=== PATIENT | male | born 1950 | race Caucasian/White ===

== ENCOUNTER 2017-03-28 14:12 | Outpatient (CLI) | payer OTHER ==
[2017-03-28 18:19] LABS: ALBUMIN/GLOBULIN RATIO 1.4 (1.0-2.2); BILIRUBIN,TOTAL 1.2 mg/dL (0.2-1.0); BUN - BLOOD UREA NITROGEN 13 mg/dL (6-20); CALCIUM 9.2 mg/dL (8.5-10.3); CARBON DIOXIDE - CO2 30 mmol/L (21-32); CHLORIDE 105 mmol/L (101-111); CHOL/HDL RATIO 4.5 (<5.0); CHOLESTEROL 192 mg/dL; CREATININE 0.8 mg/dL (0.6-1.2); GFR - MDRD 97 (>89); GLUCOSE 104 mg/dL (70-100); HDL CHOLESTEROL 43 mg/dL; LDL/HDL RATIO 2.5 (<3.6); POTASSIUM 4.5 mmol/L (3.5-5.0); SODIUM 141 mmol/L (135-145); TOTAL PROTEIN 7.1 g/dL (6.7-8.2); TRIGLYCERIDES 211 mg/dL; VLDL CHOLESTEROL 42 mg/dL
== END 2017-03-28 14:13 | disposition home or self-care (01) ==
LOC: LAB.F 14:12
PROVIDERS: ATTEND Internal Medicine
DX: E78.00 Pure hypercholesterolemia, unspecified (principal)
CPT/HCPCS: 36415; 80053; 80061

== ENCOUNTER 2017-04-26 08:19 | Outpatient (CLI) | payer OTHER ==
[2017-04-26 11:31] LABS: CREATININE 0.7 mg/dL (0.6-1.2)
== END 2017-04-26 08:20 | disposition home or self-care (01) ==
LOC: LAB.F 08:19
PROVIDERS: ATTEND Internal Medicine
DX: I10 Essential (primary) hypertension (principal)
CPT/HCPCS: 36415; 80048

== ENCOUNTER 2018-03-10 14:57 | Observation (INO) | payer MEDICARE, OTHER ==
--- NOTE | 2018-03-10 15:13 | ED Physician Documentation ---
PD HPI CHEST PAIN - Stated complaint Stated Complaint: CHEST PX/LT SHOULDER/NECK PX/LIGHT HEADED - Chief complaint Chief Complaint: Cardiac - History obtained from History obtained from: Patient, Family - History of Present Illness Timing - onset: Today (He was awoken at 130 this morning by sharp painful left- sided chest pain radiating to the left arm with mild dizziness but no shortness of breath, nausea, or sweats. He did note a few days ago that he had some pain behind left knee and he returned from [place] biplane a few weeks ago. He has a history of hypertension but no known heart disease. He took aspirin prior to arrival. Pain is better now but not completely gone.) Review of Systems Ten Systems: 10 systems reviewed and negative Constitutional: denies: Fever, Chills Throat: denies: Dental pain / toothache, Sore throat Cardiac: denies: Palpitations Respiratory: denies: Dyspnea, Cough PD PAST MEDICAL HISTORY - Past Medical History Cardiovascular: Hypertension - Past Surgical History Past Surgical History: Yes General: Gastric surgery (Lap band) Ortho: Knee replacement - Present Medications Home Medications: Ambulatory Orders Medication Instructions Recorded Confirmed Lisinopril/Hydrochlorothiazide 10 DAILY 11/28/14 12/01/14 [Lisinopril-Hctz 10-12.5 mg Tab] Aspirin [Aspir 81] 325 DAILY 12/01/14 12/01/14 - Allergies Allergies/Adverse Reactions: Allergies Allergy/AdvReac Type Severity Reaction Status Date / Time No Known Drug Allergies Allergy Verified 03/10/18 15:08 - Social History Does the pt smoke?: No Smoking Status: Never smoker Does the pt drink ETOH?: No Does the pt have substance abuse?: No - Family History Family history: reports: Non contributory - Immunizations Immunizations are current?: Yes PD ED PE NORMAL - Vitals Vital signs reviewed: Yes - General General: Alert and oriented X 3, No acute distress - HEENT HEENT: PERRL, EOMI - Neck Neck: Supple, no meningeal sign, No bony TTP - Cardiac Cardiac: RRR, No murmur - Respiratory Respiratory: No respiratory distress, Clear bilaterally - Abdomen Abdomen: Normal bowel sounds, Soft, Non tender - Back Back: No CVA TTP, No spinal TTP - Derm Derm: Normal color, Warm and dry - Extremities Extremities: No calf tenderness / cord, Other (Trace pitting pedal edema which is symmetric without calf tenderness.) - Neuro Neuro: Alert and oriented X 3, Normal speech - Psych Psych: Normal mood, Normal affect Results - Vitals Vitals: Vital Signs - 24 hr 03/10/18 03/10/18 03/10/18 15:05 15:59 16:04 Temperature 36.8 C Heart Rate 75 76 90 Respiratory 20 22 17 Rate Blood Pressure 162/87 H 150/85 H 144/85 H O2 Saturation 99 Oxygen O2 Source Room air - EKG (time done) 1505 Rate: Rate (enter#) (82) Rhythm: NSR (with pacs) [place]: LAD Intervals: Wide QRS Ischemia: Normal ST segments Computer interpretation: Agree with computer - Labs Labs: Laboratory Tests 03/10/18 03/10/18 03/10/18 15:15 15:15 15:15 WBC 8.9 RBC 4.65 L Hgb 14.0 Hct 40.8 L MCV 87.8 MCH 30.2 MCHC 34.4 RDW 14.0 Plt Count 356 MPV 7.3 L Neut # (Auto) Not Reportable Lymph # (Auto) Not Reportable [place] # (Auto) Not Reportable Eos # (Auto) Not Reportable Baso # (Auto) Not Reportable Absolute Nucleated RBC Not Reportable Total Counted 100 Band Neuts % (Manual) 10 Abnorm Lymph % (Manual) 0 Nucleated RBC % Not Reportable Neutrophils # (Manual) 6.6 Lymphocytes # (Manual) 1.6 Monocytes # (Manual) 0.5 Eosinophils # (Manual) 0.2 Basophils # (Manual) 0.0 Differential Comment MANUAL DIFFERENTIAL Manual Slide Review Indicated WBC Morphology NORMAL APPEARANCE Platelet Estimate NORMAL (130-450,000) Platelet Morphology NORMAL APPEARANCE RBC Morph Micro Appear NORMAL APPEARANCE Sodium 138 Potassium 3.9 Chloride 104 Carbon Dioxide 28 Anion Gap 6.0 BUN 16 Creatinine 0.7 Estimated GFR (MDRD) 113 Glucose 113 H Calcium 8.6 Total Bilirubin 1.0 AST 26 ALT 31 Alkaline Phosphatase 45 Troponin I < 0.04 Total Protein 6.8 Albumin 3.5 Globulin 3.3 Albumin/Globulin Ratio 1.1 Lipase 27 - Rads (name of study) CTA Chest Radiology: EMP read contemporaneously (no pE< cholelithiasis) PD MEDICAL DECISION MAKING - ED course ED course: This is a morbidly obese 67-year-old gentleman with waxing and waning chest pain since this morning and also risk factors for PE including recent intercontinental travel and some leg symptoms, however his CTA of the chest and troponin and EKG are all without evidence of acute ischemia or PE, however given the persistent high risk given his size and comorbidities and age I spoke with Dr. Cantu for obs at 5:30 PM. - Sepsis Event Vital Signs: Vital Signs - 24 hr 03/10/18 03/10/18 03/10/18 15:05 15:59 16:04 Temperature 36.8 C Heart Rate 75 76 90 Respiratory 20 22 17 Rate Blood Pressure 162/87 H 150/85 H 144/85 H O2 Saturation 99 Oxygen O2 Source Room air Departure - Departure Disposition: ED Place in Observation Clinical Impression: Chest pain Qualifiers: Chest pain type: unspecified Qualified Code(s): R07.9 - Chest pain, unspecified Condition: Good
[2018-03-10 15:21] LABS: EOSINOPHILS % (AUTO) 2.7 %; MEAN CORPUSCULAR HEMOGLOBIN 30.2 pg (27.0-31.0); MEAN CORPUSCULAR HGB CONC 34.4 g/dL (32.0-36.0); MEAN CORPUSCULAR VOLUME 87.8 fL (80.0-94.0); MEAN PLATELET VOLUME 7.3 fL (7.4-11.4); MONOCYTES % (AUTO) 8.8 %; NEUTROPHILS % (AUTO) 70.5 %; PLT - PLATELET COUNT 356 10^3/uL (130-450); RED BLOOD COUNT 4.65 10^6/uL (4.70-6.10); WHITE BLOOD COUNT 8.9 x10^3/uL (4.8-10.8)
[2018-03-10 15:25] LABS: ABNORMAL LYMPHS % (MANUAL) 0 %
[2018-03-10] MEDS ORDERED: IOPAMIDOL-300 100 ML VIAL ONE (15:30)
[2018-03-10 15:36] LABS: BAND NEUTROPHILS % (MANUAL) 10 %; DIFFERENTIAL COMMENT MANUAL DIFFERENTIAL; EOSINOPHILS # (MANUAL) 0.2 10^3/uL (0-0.7); LYMPHOCYTES # (MANUAL) 1.6 10^3/uL (1.5-3.5); LYMPHOCYTES % (MANUAL) 18 %; MONOCYTES # (MANUAL) 0.5 10^3/uL (0.0-1.0); NEUTROPHILS # (MANUAL) 6.6 10^3/uL (1.5-6.6); NEUTROPHILS % (MANUAL) 64 %; PLATELET ESTIMATE, MANUAL NORMAL (130-450,000) (NORMAL); PLATELET MORPHOLOGY NORMAL APPEARANCE (NORMAL); RBC MORPHOLOGY (MULTIPLE) NORMAL APPEARANCE (NORMAL)
[2018-03-10 15:37] LABS: ALBUMIN 3.5 g/dL (3.2-5.5); ALBUMIN/GLOBULIN RATIO 1.1 (1.0-2.2); CALCIUM 8.6 mg/dL (8.5-10.3); CREATININE 0.7 mg/dL (0.6-1.2); TOTAL PROTEIN 6.8 g/dL (6.7-8.2)
[2018-03-10] MEDS ORDERED: MORPHINE 2 MG/ML SYRINGE IVP STA (15:53)
[2018-03-10] MEDS ORDERED: NITROGLYCERIN SL 0.4 MG TABLET SL STA (15:53)
[2018-03-10] MEDS ORDERED: IOPAMIDOL-300 100 ML VIAL IVP ONE (16:53)
[2018-03-10] MEDS ORDERED: ACETAMINOPHEN 325 MG TABLET PO STA (17:01)
--- NOTE | 2018-03-10 17:15 | CT Report ---
Procedure Date: 03/10/2018 Accession Number: [id number] / [id number] Procedure: CT - Chest Angio (PE) CPT Code: FULL RESULT: EXAM: CT ANGIOGRAM CHEST EXAM DATE: 03/10/2018 04:51 PM. CLINICAL HISTORY: Chest pain. COMPARISON: 08/06/2007. TECHNIQUE: Routine helical imaging was performed through the chest in the pulmonary arterial phase. IV Contrast: 100 mL Isovue-300. Reconstructions: Coronal 3-D MIP reconstructions.Sagittal and coronal. In accordance with CT protocol optimization, one or more of the following dose reduction techniques were utilized for this exam: automated exposure control, adjustment of mA and/or KV based on patient size, or use of iterative reconstructive technique. FINDINGS: Pulmonary Arteries: Diagnostic quality: Adequate through the segmental arteries. No pulmonary embolus is seen. Lungs/Pleura: Mild subpleural scarring in the inferior lingula. Mild linear atelectasis in the bilateral posterior lower lobe bases. No focal infiltrate, pleural effusion, or pneumothorax. Mediastinum: Heart size is normal. No pericardial effusion. Mild atherosclerotic calcifications within the aortic arch. No aortic aneurysm or dissection. No adenopathy. Upper Abdomen: Laparoscopic adjustable gastric band. Cholelithiasis without gallbladder distention or pericholecystic fat stranding to suggest acute cholecystitis. Bones: Thoracic spine DISH. No acute bony abnormality. Other: None. IMPRESSION: 1. No pulmonary embolus or other acute process identified to explain chest pain. 2. Cholelithiasis without CT evidence for acute cholecystitis. RADIA
[2018-03-10] MEDS ORDERED: SODIUM CHLORIDE FLUSH 0.9% 10 ML SYRINGE IVP PRN (17:33)
[2018-03-10] MEDS ORDERED: MORPHINE 2 MG/ML SYRINGE IVP PRN (17:33)
[2018-03-10] MEDS ORDERED: TEMAZEPAM 15 MG CAPSULE PO PRN (17:33)
[2018-03-10] MEDS ORDERED: IBUPROFEN 600 MG TABLET PO PRN (17:33)
[2018-03-10] MEDS ORDERED: NITROGLYCERIN SL 0.4 MG TABLET SL PRN (17:39)
--- NOTE | 2018-03-10 18:06 | HISTORY & PHYSICAL EXAMINATION ---
Chief Complaint - Chief Complaint Chief Complaint: chest pain History of Present Illness - Admitted From Admitted From:: home - History Obtained From History obtained from: patient, daughter, ED physician - History of Present Illness HPI Comment/Other: Mr. Justin Briggs is a very pleasant 67-year-old gentleman with a past medical history significant only for hypertension, Morbid obesity, and obstructive sleep apnea. This morning the patient woke up with stabbing chest pain to his substernal area at about 1 AM. He sat on the side of the bed because it was more painful for him to lay down then to sit on the side of the bed and he stayed that way for about 3 hours until about 4 AM. At about 4 AM he took 2 aspirin and felt that his chest pain was starting to go away so he was able to lay down and sleep until about 7 AM when he again woke up with the chest pain. The patient waited for the chest pain to go away but this afternoon when he was still having the chest pain decided to come to the emergency department. Upon presentation to the emergency department the patient had an essentially normal exam; he had chest pain with no radiation, no diaphoresis or shortness of breath. An EKG was done which showed no ischemic changes. Because of his past medical history of a significant chest contusion he had a CTA done of his chest which was again negative for any pulmonary emboli or any other pathology. The CT did show some gallstones but this was not in the area that the patient was complaining of with regards to his chest pain. An initial troponin was negative. Because of the patient's past medical history, morbid obesity, and having had a brother who at age 49 of a heart attack and a mother who of a heart attack it was felt to be prudent to bring the patient in to the hospital, complete the series of troponins, monitor his EKG overnight, and obtain an echocardiogram tomorrow. History - Past Medical History Cardiovascular: reports: Hypertension Respiratory: reports: Sleep apnea, CPAP use MRSA Hx?: No - Past Surgical History General: reports: Gastric surgery (Lap band) Ortho: reports: Knee replacement, Carpal Tunnel surgery (Bilaterally), Other ( Leg surgery, Foot surgery) HEENT: reports: Tonsil/Adenoidectomy Other past surgical history: The patient has had a LAP-BAND procedure - Family & Social History Family History: Mother: , Hyperlipidemia, Hypertension, [place], Father: , Renal Disease/Failure, Sister: , Cancer, Brother: , Hyperlipidemia, Hypertension, [place], Other family: , Cancer Family History Comment/Other: The patient's mother of heart attack. Patient's father of congestive heart failure renal failure, a brother of heart attack at age 49, sister of colon cancer, a cousin of cancer , and a nephew of a drug overdose. Living arrangement: At home Living Situation: With spouse/s.o. - Substance History Use: Uses substance without health or social issues: NONE Abuse: Recurrent use of substance despite neg consequences: NONE Dependence: Experiences withdrawal or developed tolerances: NONE - POLST Patient has POLST: No POLST Status: Full Code Meds/Allgy - Home Medications Home Medications: Ambulatory Orders Medication Instructions Recorded Confirmed Lisinopril/Hydrochlorothiazide 10 DAILY 11/28/14 12/01/14 [Lisinopril-Hctz 10-12.5 mg Tab] Aspirin [Aspir 81] 325 DAILY 12/01/14 12/01/14 - Allergies Allergies/Adverse Reactions: Allergies Allergy/AdvReac Type Severity Reaction Status Date / Time No Known Drug Allergies Allergy Verified 03/10/18 15:08 Review of Systems - Constitutional Constitutional: denies: Fatigue, Fever, Chills, Malaise, Weakness, Night sweats - Eyes Eyes: denies: Pain, Irritation, Amaurosis, Blurred vision, Dipolpia - Ears, Nose & Throat Ears, Nose & Throat: denies: Ear pain, Hearing loss, Tinnitus, Vertigo, Nasal discharge, Nosebleeds - Cardiovascular Cariovascular: reports: Chest pain. denies: Irregular heart rate, Palpitations , Edema, Syncope, Orthopnea - Respiratory Respiratory: denies: Cough, Sputum production, Wheezing, Snoring, SOB at rest, SOB with exertion - Gastrointestinal Gastrointestinal: denies: Abdominal pain, Abdominal distention, Constipation, Diarrhea, Change in bowel habits, Rectal bleeding - Genitourinary Genitourinary: denies: Dysuria, Frequency, Urgency, Hematuria - Musculoskeletal Musculoskeletal: denies: Muscle pain, Back pain, Muscle aches, Stiffness - Integumentary Integumentary: denies: Rash, Pruritis, Lesions, Dryness - Neurological Neurological: denies: General weakness, Focal weakness, Headache, Dizziness - Psychiatric Psychiatric: denies: Depression, Anxiety, Suicidal, Hallucinations - Endocrine Endocrine: denies: Polyuria, Polydypsia, Polyphagia - Hematologic/Lymphatic Hematologic/Lymphatic: denies: Anemia, Bruising, Petechiae, Lymphadenopathy - All Other Systems All Other Systems: reports: Reviewed and negative Exam - Vital Signs Reviewed Vital Signs: Yes Vital Signs: Vital Signs x48h Temp Pulse Resp BP Pulse Ox 03/10/18 16:04 90 17 144/85 H 03/10/18 15:59 76 22 150/85 H 03/10/18 15:05 36.8 C 75 20 162/87 H 99 - Physical Exam General Appearance: positive: No acute distress, Alert Eyes Bilateral: positive: Normal inspection, PERRL, EOMI, No lid inflammation, Conjunctivae nml, No scleral icterus ENT: positive: ENT inspection nml, Pharynx nml, No signs of dehydration Neck: positive: Nml inspection, Thyroid nml, No JVD, Trachea midline. negative : Thyromegaly Respiratory: positive: Chest non-tender, No respiratory distress, Breath sounds nml. negative: Wheezes, Rales, Rhonchi Cardiovascular: positive: Regular rate & rhythm, No murmur, No gallop Peripheral Pulses: positive: 1+ Abdomen: positive: Non-tender, No organomegaly, Nml bowel sounds, No distention. negative: Guarding, Rebound Back: positive: Nml inspection. negative: CVA tenderness (R), CVA tenderness (L ) Skin: positive: Color nml, No rash, Warm, Dry. negative: Cyanosis Extremities: positive: Non-tender, Full ROM, Nml appearance Neurologic/Psychiatric: positive: Oriented x3, CN's nml (2-12), Motor nml, Sensation nml, Mood/affect nml Conclusion/Plan - Problem List (1) Chest pain Conclusion/Plan: The patient had severe chest pain which was persistent throughout the day today beginning very early this morning. Thus far the workup has been negative however we will admit him to an observational bed on telemetry and obtain his serial troponins and an echocardiogram in the morning. We will treat him with baby aspirin and nitroglycerin as needed. Qualifiers: Chest pain type: unspecified Qualified Code(s): R07.9 - Chest pain, unspecified (2) Hypertension Conclusion/Plan: Patient does have a history of hypertension and recently had his blood pressure medication adjusted up to 20 mg of lisinopril and 25 mg of hydrochlorothiazide daily. At this time the patient's blood pressure is mildly elevated. We will continue to monitor and if necessary add a third agent. (3) Morbid obesity Conclusion/Plan: Patient has had a LAP-BAND procedure but remains morbidly obese with a BMI of 44.5, and he weighs over 300 pounds. I will request a nutritional consult - Lab Results Lab results reviewed: Yes Fish Bones: 03/10/18 15:15 03/10/18 15:15 - Diagnostic Imaging Results Diagnostic Imaging Results: positive: Final report reviewed Diagnostic Imaging Results Comments: EXAM: CT ANGIOGRAM CHEST EXAM DATE: 03/10/2018 04:51 PM. CLINICAL HISTORY: Chest pain. COMPARISON: 08/06/2007. TECHNIQUE: Routine helical imaging was performed through the chest in the pulmonary arterial phase. IV Contrast: 100 mL Isovue-300. Reconstructions: Coronal 3-D MIP reconstructions.Sagittal and coronal. In accordance with CT protocol optimization, one or more of the following dose reduction techniques were utilized for this exam: automated exposure control, adjustment of mA and/or KV based on patient size, or use of iterative reconstructive technique. FINDINGS: Pulmonary Arteries: Diagnostic quality: Adequate through the segmental arteries. No pulmonary embolus is seen. Lungs/Pleura: Mild subpleural scarring in the inferior lingula. Mild linear atelectasis in the bilateral posterior lower lobe bases. No focal infiltrate, pleural effusion, or pneumothorax. Mediastinum: Heart size is normal. No pericardial effusion. Mild atherosclerotic calcifications within the aortic arch. No aortic aneurysm or dissection. No adenopathy. Upper Abdomen: Laparoscopic adjustable gastric band. Cholelithiasis without gallbladder distention or pericholecystic fat stranding to suggest acute cholecystitis. Bones: Thoracic spine DISH. No acute bony abnormality. Other: None. IMPRESSION: 1. No pulmonary embolus or other acute process identified to explain chest pain. 2. Cholelithiasis without CT evidence for acute cholecystitis. - EKG Results EKG Interpreted Independently: No Core Measures - Anticipated LOS I expect patient to be DC'd or transferred within 96 hours.: Yes - DVT/VTE - Prophylaxis VTE/DVT Device ordered at admit?: Yes
[2018-03-10] MEDS: ASPIRIN EC 81 MG TABLET PO SCH (18:23)
[2018-03-10] MEDS: SODIUM CHLORIDE FLUSH 0.9% 10 ML SYRINGE IVP SCH (18:24)
[2018-03-10] MEDS: D5.45NS W/20 MEQ KCL 1,000 ML IV SCH (18:24)
[2018-03-11] MEDS: D5.45NS W/20 MEQ KCL 1,000 ML IV SCH (04:03)
[2018-03-11 04:12] LABS: HGB - HEMOGLOBIN 12.8 g/dL (14.0-18.0); MEAN CORPUSCULAR HEMOGLOBIN 30.6 pg (27.0-31.0); MEAN CORPUSCULAR HGB CONC 34.4 g/dL (32.0-36.0); MEAN CORPUSCULAR VOLUME 88.8 fL (80.0-94.0); MEAN PLATELET VOLUME 7.4 fL (7.4-11.4); RED BLOOD COUNT 4.17 10^6/uL (4.70-6.10); RED CELL DISTRIBUTION WIDTH 13.8 % (12.0-15.0); WHITE BLOOD COUNT 7.3 x10^3/uL (4.8-10.8)
[2018-03-11 04:19] LABS: CALCIUM 8.2 mg/dL (8.5-10.3); CREATININE 0.8 mg/dL (0.6-1.2)
[2018-03-11] MEDS: ASPIRIN EC 81 MG TABLET PO SCH (08:35)
[2018-03-11] MEDS: SODIUM CHLORIDE FLUSH 0.9% 10 ML SYRINGE IVP SCH (08:35)
[2018-03-11] MEDS ORDERED: HYDROCHLOROTHIAZIDE PO SCH (09:00)
[2018-03-11] MEDS ORDERED: LISINOPRIL 5 MG TABLET PO SCH (09:00)
[2018-03-11] MEDS ORDERED: POLYETHYLENE GLYCOL 3350 17 GM PACKET PO SCH (09:00)
[2018-03-11] MEDS ORDERED: hydroCHLOROthiazide 12.5 MG CAPSULE PO SCH (09:00)
[2018-03-11] MEDS ORDERED: LISINOPRIL PO SCH (09:00)
[2018-03-11] MEDS ORDERED: [UNRECOGNIZED DRUG - OTHER] PO SCH (09:00)
--- NOTE | 2018-03-11 11:11 | DISCHARGE SUMMARY ---
Discharge Summary Admit Date: 03/10/18 Discharge Date: 03/11/18 Discharging Provider: Erika Cantu DO Primary Care Provider: Ibrahima Valverde MD Code Status: Attempt Resuscitation Condition at Discharge: Good Discharge Disposition: 01 Home, Self Care - DIAGNOSES Admission Diagnoses: 1. Chest Pain 2. Hypertension 3. Morbid Obesity Discharge Diagnoses with Status of Each Condition: 1. Chest Pain- Serial troponins were negative 3 and the patient has not had any recurrence of his chest pain since he was admitted. EKG shows no ischemic changes. Echocardiogram is essentially normal with some mild left ventricular hypertrophy. 2. Hypertension- Patient has a history of hypertension but does not take any medications. While he is inpatient I started him on lisinopril and hydrochlorothiazide and these have been effective at managing the patient's blood pressure. He will be discharged home on them. 3. Morbid Obesity- The patient had a lap band procedure which he paid for out of his pocket (17,000 dollars) and lost 150 pounds from that. At this time he has reduced the setting to normal on the LAP-BAND and his weight has maintained at around 300 pounds. I have encouraged him to lose another 100 pounds if it is not too much trouble as he will be much healthier for it. - HPI History of Present Illness: Mr. Justin Briggs is a very pleasant 67-year-old gentleman with a past medical history significant only for hypertension, Morbid obesity, and obstructive sleep apnea. This morning the patient woke up with stabbing chest pain to his substernal area at about 1 AM. He sat on the side of the bed because it was more painful for him to lay down then to sit on the side of the bed and he stayed that way for about 3 hours until about 4 AM. At about 4 AM he took 2 aspirin and felt that his chest pain was starting to go away so he was able to lay down and sleep until about 7 AM when he again woke up with the chest pain. The patient waited for the chest pain to go away but this afternoon when he was still having the chest pain decided to come to the emergency department. Upon presentation to the emergency department the patient had an essentially normal exam; he had chest pain with no radiation, no diaphoresis or shortness of breath. An EKG was done which showed no ischemic changes. Because of his past medical history of a significant chest contusion he had a CTA done of his chest which was again negative for any pulmonary emboli or any other pathology. The CT did show some gallstones but this was not in the area that the patient was complaining of with regards to his chest pain. An initial troponin was negative. Because of the patient's past medical history, morbid obesity, and having had a brother who at age 49 of a heart attack and a mother who of a heart attack it was felt to be prudent to bring the patient in to the hospital, complete the series of troponins, monitor his EKG overnight, and obtain an echocardiogram tomorrow. - HOSPITAL COURSE Hospital Course: Patient was admitted to an observation bed on telemetry and serial serial troponins were completed and were found to be negative. An echocardiogram was performed today which showed no ischemic changes or wall motion abnormalities. The patient has very mild left ventricular hypertrophy however. At this point we will discharge the patient and he will follow-up with his primary care physician next week. - ALLERGIES Allergies/Adverse Reactions: Allergies Allergy/AdvReac Type Severity Reaction Status Date / Time No Known Drug Allergies Allergy Verified 03/10/18 15:08 - MEDICATIONS Home Medications: Ambulatory Orders Medication Instructions Recorded Confirmed Aspirin [Aspir 81] 81 mg PO QPM 12/01/14 03/11/18 Lisinopril 20 mg PO QPM 03/10/18 03/11/18 - PHYSICAL EXAM AT DISCHARGE General Appearance: positive: No acute distress, Alert Eyes Bilateral: positive: Normal inspection, PERRL, EOMI, No lid inflammation, Conjunctivae nml, No scleral icterus ENT: positive: ENT inspection nml, Pharynx nml, No signs of dehydration Neck: positive: Nml inspection, Thyroid nml, No JVD, Trachea midline. negative : Thyromegaly Respiratory: positive: Chest non-tender, No respiratory distress, Breath sounds nml. negative: Wheezes, Rales, Rhonchi Cardiovascular: positive: Regular rate & rhythm, No murmur, No gallop Peripheral Pulses: positive: 1+ Abdomen: positive: Non-tender, No organomegaly, Nml bowel sounds, No distention. negative: Guarding, Rebound Back: positive: Nml inspection. negative: CVA tenderness (R), CVA tenderness (L ) Skin: positive: Color nml, No rash, Warm, Dry. negative: Cyanosis Extremities: positive: Non-tender, Full ROM, Nml appearance, No pedal edema Neurologic/Psychiatric: positive: Oriented x3, CN's nml (2-12), Motor nml, Sensation nml, Mood/affect nml - LABS Result Diagrams: 03/11/18 04:00 03/11/18 04:00 - DIAGNOSTIC IMAGING Diagnostic Imaging Results: Final report reviewed Diagnostic Imaging Results Comments: CT ANGIOGRAM CHEST EXAM DATE: 03/10/2018 04:51 PM. CLINICAL HISTORY: Chest pain. COMPARISON: 08/06/2007. TECHNIQUE: Routine helical imaging was performed through the chest in the pulmonary arterial phase. IV Contrast: 100 mL Isovue-300. Reconstructions: Coronal 3-D MIP reconstructions.Sagittal and coronal. In accordance with CT protocol optimization, one or more of the following dose reduction techniques were utilized for this exam: automated exposure control, adjustment of mA and/or KV based on patient size, or use of iterative reconstructive technique. FINDINGS: Pulmonary Arteries: Diagnostic quality: Adequate through the segmental arteries. No pulmonary embolus is seen. Lungs/Pleura: Mild subpleural scarring in the inferior lingula. Mild linear atelectasis in the bilateral posterior lower lobe bases. No focal infiltrate, pleural effusion, or pneumothorax. Mediastinum: Heart size is normal. No pericardial effusion. Mild atherosclerotic calcifications within the aortic arch. No aortic aneurysm or dissection. No adenopathy. Upper Abdomen: Laparoscopic adjustable gastric band. Cholelithiasis without gallbladder distention or pericholecystic fat stranding to suggest acute cholecystitis. Bones: Thoracic spine DISH. No acute bony abnormality. Other: None. IMPRESSION: 1. No pulmonary embolus or other acute process identified to explain chest pain. 2. Cholelithiasis without CT evidence for acute cholecystitis. - FOLLOW UP Follow Up: Follow-up with Dr. Valverde next week - TIME SPENT Time Spent in Discharge (Minutes): 40
--- NOTE | 2018-03-11 11:41 | Discharge Plan ---
Discharge Plan Disposition: 01 Home, Self Care Condition: Good Prescriptions: hydroCHLOROthiazide [Hydrodiuril] 12.5 mg PO DAILY #20 capsule Lisinopril [Zestril] 10 mg PO DAILY #20 tablet Diet: Cardiac Activity Restrictions: Activity as Tolerated Shower Restrictions: No Driving Restrictions: No Weight Bearing: Full Weight No Smoking: If you smoke, Please STOP! Call for help. Follow-up with: Oleg Valverde MD [Primary Care Provider] -
[2018-03-11 11:53] VITALS: BP 135/76
== END 2018-03-11 11:55 | disposition home or self-care (01) ==
LOC: ED 14:57 → OBS 17:33
PROVIDERS: ADMIT Hospitalist; ATTEND Hospitalist
DX: R07.89 Other chest pain (principal); I10 Essential (primary) hypertension; E66.01 Morbid (severe) obesity due to excess calories; Z68.42 Body mass index [BMI] 45.0-49.9, adult; Z82.49 Family history of ischemic heart disease and other diseases of the circulatory system; G47.33 Obstructive sleep apnea (adult) (pediatric); Z79.82 Long term (current) use of aspirin; Z98.84 Bariatric surgery status
CPT/HCPCS: 36415; 71275; 80048; 80053; 83690; 84484; 85025; 85027; 93005; 93306; 96360; 96361; 99284; 99285; A9270; G0378; Q9967

== ENCOUNTER 2019-02-08 10:01 | Outpatient (CLI) | payer MEDICARE ==
[2019-02-08 17:46] LABS: BILIRUBIN,URINE NEGATIVE (NEGATIVE); GLUCOSE, URINE (UA) NEGATIVE (NEGATIVE); KETONES,URINE (UA) NEGATIVE (NEGATIVE); LEUKOCYTE ESTERASE, URINE SMALL (NEGATIVE); NITRITE,URINE NEGATIVE (NEGATIVE); OCCULT BLOOD,URINE NEGATIVE (NEGATIVE); PROTEIN,URINE NEGATIVE (NEGATIVE); UROBILINOGEN,URINE 0.2 (NORMAL) E.U./dL (NORMAL)
[2019-02-08 17:57] LABS: CLARITY,URINE CLEAR (CLEAR)
[2019-02-08 18:06] LABS: ALBUMIN 3.8 g/dL (3.2-5.5); ALBUMIN/GLOBULIN RATIO 1.3 (1.0-2.2); ALKALINE PHOSPHATASE 41 IU/L (42-121); ALT ALANINE AMINOTRANSFERASE 19 IU/L (10-60); AST ASPARTATE AMINOTRANSFERASE 16 IU/L (10-42); BACTERIA,URINE None Seen /HPF (None Seen); BILIRUBIN,TOTAL 1.2 mg/dL (0.2-1.0); BUN - BLOOD UREA NITROGEN 20 mg/dL (6-20); CALCIUM 8.5 mg/dL (8.5-10.3); CARBON DIOXIDE - CO2 28 mmol/L (21-32); CHLORIDE 104 mmol/L (101-111); CHOLESTEROL 205 mg/dL; CREATININE 0.7 mg/dL (0.6-1.2); GFR - MDRD 113 (>89); GLUCOSE 96 mg/dL (70-100); HDL CHOLESTEROL 41 mg/dL; LDL CHOLESTEROL,CALCULATED 149 mg/dL; LDL/HDL RATIO 3.6 (<3.6); RBC,URINE 0-5 /HPF (0-5); SODIUM 138 mmol/L (135-145); SQUAMOUS EPITHELIAL CELL,UR RARE Squamous (<= Few); TOTAL PROTEIN 6.8 g/dL (6.7-8.2); VLDL CHOLESTEROL 15 mg/dL
== END 2019-02-08 10:02 | disposition home or self-care (01) ==
LOC: LAB.S 10:01
PROVIDERS: ATTEND Internal Medicine
DX: I10 Essential (primary) hypertension (principal); R35.8 Other polyuria; E66.9 Obesity, unspecified
CPT/HCPCS: 36415; 80053; 80061; 81001; 81003; 83721; 87086

== ENCOUNTER 2019-03-06 | Emergency (ER) | payer MEDICARE | END 2019-03-06 12:40 | disposition home or self-care (01) | DX: N30.00 Acute cystitis without hematuria (principal); N20.0 Calculus of kidney; I10 Essential (primary) hypertension | CPT/HCPCS: 36415; 51702; 51798; 74176; 80053; 81001; 83690; 84153; 84154; 87077; 87086; 87181; 99284; A9270; 81003 ==

== ENCOUNTER 2019-04-08 08:43 | Emergency (ER) | payer MEDICARE ==
--- NOTE | 2019-04-08 08:54 | ED Physician Documentation ---
PD HPI MALE - Stated complaint Stated Complaint: MALE - Chief complaint Chief Complaint: Abd Pain - History obtained from History obtained from: Patient - History of Present Illness Timing - onset: How many days ago (3) Timing - duration: Days (3) Timing - details: Gradual onset, Still present (worsening) Associated symptoms: Scrotal swelling. No: Dysuria, Urinary frequency, Hematuria, Discharge, Abdominal pain PD HPI MALE CONTRIB FACTORS: Sexually active Similar symptoms before: Has not had sx before Recently seen: Clinic, Emergency Dept (had urinary difficulty and Rx with Flomax, abx and pyridium. Symptoms improved. now with scrotal swelling for 3 days.) Review of Systems Constitutional: denies: Fever, Chills, Myalgias Nose: denies: Rhinorrhea / runny nose, Congestion Throat: denies: Sore throat Cardiac: denies: Chest pain / pressure Respiratory: denies: Cough GI: denies: Abdominal Pain, Nausea, Vomiting : denies: Dysuria, Discharge Skin: denies: Rash, Lesions PD PAST MEDICAL HISTORY - Past Medical History Cardiovascular: Hypertension Respiratory: Sleep apnea, CPAP use Neuro: None Endocrine/Autoimmune: None GI: Cholelithiasis : None HEENT: None Psych: None Musculoskeletal: Osteoarthritis Derm: None - Past Surgical History Past Surgical History: Yes General: Gastric surgery (Lap band) Ortho: Knee replacement, Carpal Tunnel surgery (Bilaterally), Other (Leg surgery, Foot surgery) HEENT: Tonsil/Adenoidectomy - Present Medications Home Medications: Ambulatory Orders Medication Instructions Recorded Confirmed Aspirin [Aspir 81] 81 mg PO QPM 12/01/14 03/06/19 Lisinopril 20 mg PO QPM 03/10/18 03/06/19 Lisinopril [Zestril] 10 mg PO DAILY #20 tablet 03/11/18 03/06/19 hydroCHLOROthiazide [Hydrodiuril] 12.5 mg PO DAILY #20 capsule 03/11/18 03/06/19 Doxycycline Hyclate 100 mg PO BID #20 capsule 03/06/19 Finasteride [Proscar] 5 mg PO DAILY #20 tablet 03/06/19 Naproxen 375 mg PO BID #20 tablet 03/06/19 Phenazopyridine HCl [Pyridium] 100 mg PO TID PRN #20 tablet 03/06/19 Ciprofloxacin HCl [Cipro] 500 mg PO BID #20 tablet 04/08/19 Hydrocodone/Acetaminophen [Fowler 1 each PO Q6H PRN #15 tablet 04/08/19 5-325 Tablet] Naproxen 500 mg PO BID #20 tablet 04/08/19 - Allergies Allergies/Adverse Reactions: Allergies Allergy/AdvReac Type Severity Reaction Status Date / Time No Known Drug Allergies Allergy Verified 04/08/19 08:52 - Social History Does the pt smoke?: No Smoking Status: Never smoker Does the pt drink ETOH?: No Does the pt have substance abuse?: No - Immunizations Immunizations are current?: Yes - POLST Patient has POLST: No POLST Status: Full Code PD ED PE NORMAL - Vitals Vital signs reviewed: Yes - General General: Alert and oriented X 3, Well developed/nourished - Cardiac Cardiac: RRR, No murmur - Respiratory Respiratory: Clear bilaterally - Abdomen Abdomen: Soft, Non tender - Male Male : Other (left scrotum normal. Right with likely normal testicle but mass above it that is tender. Hard to discern. Inguinal area okay. ) - Rectal Rectal: Deferred - Derm Derm: Normal color, Warm and dry Results - Vitals Vitals: Vital Signs - 24 hr 04/08/19 04/08/19 08:49 11:50 Temperature 36.7 C Heart Rate 94 68 Respiratory 19 19 Rate Blood Pressure 154/103 H 143/90 H O2 Saturation 95 99 Oxygen O2 Source Room air - Labs Labs: Laboratory Tests 04/08/19 10:18 Urine Color YELLOW Urine Clarity CLOUDY Urine pH 6.0 Ur Specific [place] 1.025 Urine Protein TRACE Urine Glucose (UA) NEGATIVE Urine Ketones NEGATIVE Urine Occult Blood MODERATE H Urine Nitrite NEGATIVE Urine Bilirubin NEGATIVE Urine Urobilinogen 0.2 (NORMAL) Ur Leukocyte Esterase MODERATE H Urine RBC 11-25 H Urine WBC >25 H Ur Squamous Epith Cells FEW Squamous Urine Bacteria Few Urine Mucus Few Strands Ur Microscopic Review INDICATED Urine Culture Comments INDICATED - Rads (name of study) scrotal U/S Radiology: Prelim report reviewed (normal testicle, right hydrocele septated, and enlarged right epididymis with hyperemia. ), See rad report PD MEDICAL DECISION MAKING - ED course Complexity details: reviewed results (epididymitis and hydrocele, consider inflammatory vs infectious. Will treat with NSAIDs and abx. Had been on DOxy recently, so will go with Cipro instead. Has appt with Urology this week coming anyway on follow up of prior problem.), considered differential, d/w patient Departure - Departure Disposition: 01 Home, Self Care Clinical Impression: Scrotal swelling, Epididymitis Hydrocele Qualifiers: Hydrocele type: unspecified Qualified Code(s): N43.3 - Hydrocele, unspecified Condition: Stable Record reviewed to determine appropriate education?: Yes Instructions: ED Epididymitis Follow-Up: Demarco Cruz MD [Primary Care Provider] - Prescriptions: Ciprofloxacin HCl [Cipro] 500 mg PO BID #20 tablet Hydrocodone/Acetaminophen [Fowler 5-325 Tablet] 1 each PO Q6H PRN #15 tablet PRN Reason: Pain Naproxen 500 mg PO BID #20 tablet Comments: Stay well-hydrated. Take ciprofloxacin antibiotic twice daily for 10 days. This is a good dose at 500 mg with common dose being 250. Use naproxen anti- inflammatory twice daily with food as well. Add Tylenol or hydrocodone as needed for pain. Scrotal support such as briefs underwear or such may help close is less scrotal movement with walking. Follow-up with urology this coming week as planned. Discharge Date/Time: 04/08/19 12:03
[2019-04-08] MEDS ORDERED: HYDROcod/ACETAM 5/325 MG TABLET PO STA (09:10)
[2019-04-08 10:26] LABS: BILIRUBIN,URINE NEGATIVE (NEGATIVE); GLUCOSE, URINE (UA) NEGATIVE (NEGATIVE); KETONES,URINE (UA) NEGATIVE (NEGATIVE); LEUKOCYTE ESTERASE, URINE MODERATE (NEGATIVE); NITRITE,URINE NEGATIVE (NEGATIVE); OCCULT BLOOD,URINE MODERATE (NEGATIVE); PROTEIN,URINE TRACE mg/dL (NEGATIVE); UROBILINOGEN,URINE 0.2 (NORMAL) E.U./dL (NORMAL)
[2019-04-08 10:30] LABS: CLARITY,URINE CLOUDY (CLEAR)
[2019-04-08 10:37] LABS: BACTERIA,URINE Few /HPF (None Seen); MUCUS,URINE Few Strands; SQUAMOUS EPITHELIAL CELL,UR FEW Squamous (<= Few)
--- NOTE | 2019-04-08 11:06 | Ultrasound Report ---
Reason: right scrotal swelling for several days Procedure Date: 04/08/2019 Accession Number: [id number] / [id number] Procedure: US - Testicle w/Doppler CPT Code: FULL RESULT: US: US SCROTUM WITH DOPPLER EXAM: SCROTAL ULTRASOUND WITH DOPPLER EXAM DATE: 04/08/2019 10:33 AM. CLINICAL HISTORY: Right scrotal swelling for several days. COMPARISON: ABDOMEN/PELVIS W/O 03/06/2019 9:42 AM. TECHNIQUE: Real time sonographic grayscale and color/spectral Doppler images of the scrotum with static images were obtained. Spectral Doppler was used to completely evaluate the testicular vasculature for torsion. FINDINGS: Right: Testis: 3.7 x 3 x 2.9 cm. Normal size and echotexture. No mass. No calcification. Normal arterial and venous flow present. Epididymis: 3.9 x 1.0 x 1.1 cm. Prominent heterogeneous and hyperemic epididymis. No mass or abnormal calcification. Hydrocele: Moderate-sized complex septated debris-containing right hydrocele. Varicocele: None. Testis: 3 x 2.7 x 2.8 cm. Normal size and echotexture. No mass. No calcification. Normal arterial and venous flow present. Epididymis: Not well seen. Hydrocele: Small debris-containing left hydrocele noted. Varicocele: None. IMPRESSION: 1. No testicular mass. No evidence of torsion. 2. Small left hydrocele. Moderate-sized complex septated right hydrocele. 3. Enlarged heterogeneous and hyperemic right epididymis concerning for an infectious or inflammatory process. Left epididymis was not well seen. RADIA
[2019-04-08] MEDS ORDERED: NAPROXEN 250 MG TABLET PO STA (11:45)
[2019-04-08] MEDS ORDERED: CIPROFLOXACIN 250 MG TABLET PO STA (11:45)
[2019-04-08 11:51] VITALS: BP 143/90
== END 2019-04-08 12:03 | disposition home or self-care (01) ==
LOC: ED 08:43
DX: N45.1 Epididymitis (principal); N43.3 Hydrocele, unspecified; I10 Essential (primary) hypertension
CPT/HCPCS: 76870; 81001; 87086; 93975; 99283; 99284; A9270; 81003

== ENCOUNTER 2021-03-15 13:39 | Outpatient (CLI) | payer MEDICARE ==
[2021-03-15 16:37] VITALS: BP 130/75
--- NOTE | 2021-03-15 16:37 | SLEEP CARE CONSULTATION ---
Information from patient questionnaire entered by Martha Mendez. I have reviewed and concur with the information entered by Martha Mendez. This document represents the service I personally performed and the decisions made by me, Nataliya Cervantes MD, [facility]. History of Present Illness Service Date and Time: 03/15/2021 1339 Reason for Visit: New patient, Previously diagnosed sleep apnea (mild -AHI - 8.7), sleep apnea on CPAP therapy ([facility]), Re-establish care (last seen 2014) Chief Complaint: reports: Other (update supplies) Date of Onset: 28 years Usual bedtime: 10 pm Time it takes to fall asleep: 5 minutes Snores at night: No Observed to quit breathing while asleep: No Sleeps alone due to snoring: No Number of times waking at night: 2 Reasons for waking at night: reports: Bathroom Toss, Turn, or Twitch while sleeping: No Recalls having dreams: Yes Usually gets out of bed at: 7:15 am Feels refreshed in the morning: Yes Morning headache: No Sleepy or fatigued during the day: No Ever fallen asleep while driving: No Takes day naps: No Dreams during day naps: No Prior sleep studies: Yes Year and Where: 2008 - [facility]; [address] - [facility] in [place], [place] Type of Sleep Study: Polysomnography Additional HPI information: HPI: Mr. Briggs was diagnosed to have mild (AHI 8.7 in 2008) obstructive sleep apnea-hypopnea syndrome in 1991 and re-evaluated here in 2008. He was last seen here in September 2014. He returns today for follow up of CPAP therapy. The patient purchased the device from [employer] and was fitted with a nasal mask. He uses the device nightly and all through the night. The compliance report shows that he uses the device 175 nights out of the past 180 nights, averaging 9.3 hours a night. He complains of no particular problem with the device such as soreness on the face, dry nose, epistaxis, nasal congestion or headache. He thinks that the pressure of 6 - 10 cmH2O is comfortable. On the CPAP therapy he notices improvement in his sleep quality, and that he wakes up feeling fresher in the morning and more awake/alert during the day. His notices no snore at all. [place] Sleepiness Scale score is 4. The average residual AHI is 1.2; and average air leak is 3.9 L/minute. The 90th percentile pressure is 9.9 cmH2O . - Parasomnia Symptoms Ever been unable to move upon waking from sleep: No Walks in sleep: No Talks in sleep: No Ever acted out dreams in sleep: No Ever felt weak in the knees when startled or emotional: No Bothered by creepy, crawly, restless sensations in legs: No Problems with memory or concentration: No CPAP Compliance Data - Data Reviewed with Patient Average duration of nightly device use: 9 hr 18 min Compliance rate %: 97 (180 days) Current pressure setting (cmH2O): 6-10 Humidity settin Average residual AHI: 1.2 Subjective Initial [place] Sleepiness Scale score: 11 (in 2008) Current [place] Sleepiness Scale score: 4 Past Medical History Past Medical History: reports: Hypertension Social History The patient's occupation is a [employer]. Patient is and lives in [place]. Have you smoked in the past 12 months: No Alcohol use: No Caffeine use: No Family History Family history of sleep disordered breathing: Yes Family Hx Sleep Apnea: Sibling: Sleep apnea - Treated Allergies and Home Medications Drug allergies reviewed: Yes Home medication list reviewed: Yes Review of Systems Cardiovascular: reports: high blood pressure Respiratory: reports: shortness of breath Gastrointestinal: denies: heartburn, difficulty swallowing, nausea, vomitting, diarrhea, abdominal pain, other Urinary: denies: incontinence, frequency, urgency, impotence, other Neurological: reports: headaches Psychiatric: denies: Attention Deficit Hyperactivity, anxiety, depression, mood disorder, claustrophobia, other Ear/Nose/Throat: denies: nasal congestion, sinus problems, nose bleeds, dry mouth/throat, hoarseness, injury to nose, tonsillectomy, wisdom teeth removed, other Endocrine: denies: thyroid disease, history of goiter, sluggishness, too hot or cold, excessive thirst, increased appetite, increased urination, unexplained weakness, other Musculoskeletal: reports: mobility problems Immunologic: denies: sneezing, rash, itching, allergies to food or environment, other Physical Exam Vital signs obtained and entered by: Dr. Cervantes Blood Pressure: 130/75 Cuff size: regular Heart Rate: 85 O2 Saturation: 93 Height: 5 ft 9 in Weight: 326 lb Body Mass Index: 48.1 BMI Classification: Morbidly Obese Neck circumference: 19 Mood/affect: normal HEENT: No craniofacial malformation Neurologic: intact Impression and Plan IMPRESSION: 1. Obstructive Sleep Apnea-Hypopnea Syndrome, mild, with the patient continuing to do well on nasal CPAP therapy. He has excellent compliance and significant clinical benefits. The current pressure appears effective and comfo rtable. Overall, he is very satisfied with treatment and plans to continue with it long-term. Because the CPAP is now older than the useful life of 5 years, I will order the patient a new one and make it an autoCPAP set between 6 and 10 cmH2O. PLAN: 1. Continue with autoCPAP set at 6 - 10 cm H2O. 2. Prescription made for a new autoCPAP, heated humidifier, and related supplies. 3. Try to lose weight. 4. Return for follow up after one month of using the CPAP. Prescriptions: Auto CPAP Follow up recommended for: Weight management Visit Type: In Office Time Spent with Patient (minutes): 15 Provider Statement: I spent 100% of the Face to Face Visit with the patient with greater than 50% spent counseling the patient and coordination of care.
== END 2021-03-15 13:40 | disposition home or self-care (01) ==
LOC: SC 13:39
PROVIDERS: ATTEND Internal Medicine Pulmonary Disease
DX: G47.33 Obstructive sleep apnea (adult) (pediatric) (principal); E66.01 Morbid (severe) obesity due to excess calories; Z68.42 Body mass index [BMI] 45.0-49.9, adult
CPT/HCPCS: 99202; G0463; 99212

== ENCOUNTER 2021-12-28 10:58 | Emergency (ER) | payer MEDICARE ==
[2021-12-28 11:27] LABS: BASOPHILS # (AUTO) 0.1 10^3/uL (0.0-0.1); BASOPHILS % (AUTO) 1.2 %; EOSINOPHILS # (AUTO) 0.2 10^3/uL (0.0-0.7); EOSINOPHILS % (AUTO) 3.7 %; HCT - HEMATOCRIT 47.2 % (42.0-52.0); HGB - HEMOGLOBIN 15.4 g/dL (14.0-18.0); LYMPHOCYTES # (AUTO) 1.6 10^3/uL (1.5-3.5); LYMPHOCYTES % (AUTO) 24.1 %; MEAN CORPUSCULAR HEMOGLOBIN 30.8 pg (27.0-31.0); MEAN CORPUSCULAR HGB CONC 32.6 g/dL (32.0-36.0); MEAN CORPUSCULAR VOLUME 94.4 fL (80.0-94.0); MEAN PLATELET VOLUME 9.8 fL (7.4-11.4); MONOCYTES # (AUTO) 0.7 10^3/uL (0.0-1.0); MONOCYTES % (AUTO) 10.5 %; NEUTROPHILS # (AUTO) 3.9 10^3/uL (1.5-6.6); NEUTROPHILS % (AUTO) 59.9 %; PLT - PLATELET COUNT 244 10^3/uL (130-450); WHITE BLOOD COUNT 6.5 x10^3/uL (4.8-10.8)
--- NOTE | 2021-12-28 11:32 | ED Physician Documentation ---
PD HPI CHEST PAIN - Stated complaint Stated Complaint: CHEST PX/SOA - Chief complaint Chief Complaint: Cardiac - History obtained from History obtained from: Patient, Family - History of Present Illness Timing - onset: How many weeks ago (2) Timing - onset during: Rest, Light activity Timing - duration: Weeks (2) Timing - details: Gradual onset, Still present, Waxing and waning Quality: Pressure, Aching, Pain Location: Substernal, Left chest Radiation: Back Improved by: Rest Worsened by: Exertion, Inspiration Associated symptoms: Shortness of air, Cough, Other (fatigue). No: Diaphoresis, Nausea, Vomiting, Feeling faint / dizzy, General Weakness, Palpitations Similar symptoms before: Has not had sx before Recently seen: Not recently seen - Additional information Additional information: 71-year-old Justin Briggs has a history of hypertension, Morbid obesity and sleep apnea has developed pain in the left chest and some dyspnea associated with this. He does not usually get short of breath and he usually has significant stamina to do a lot of work.For the past 4 to 5 days he has developed a cough as well. Review of Systems Constitutional: denies: Fever, Chills, Myalgias Eyes: denies: Decreased vision Ears: denies: Ear pain Nose: reports: Congestion. denies: Rhinorrhea / runny nose Throat: denies: Sore throat Cardiac: reports: Chest pain / pressure. denies: Palpitations, Pedal edema, Calf pain Respiratory: reports: Dyspnea, Cough GI: denies: Abdominal Pain, Nausea, Vomiting, Constipation, Diarrhea : denies: Dysuria, Frequency PD PAST MEDICAL HISTORY - Past Medical History Cardiovascular: Hypertension Respiratory: Sleep apnea, CPAP use Neuro: None Endocrine/Autoimmune: None GI: Cholelithiasis : None HEENT: None Psych: None Musculoskeletal: Osteoarthritis Derm: None - Past Surgical History Past Surgical History: Yes General: Gastric surgery (Lap band) Ortho: Knee replacement, Carpal Tunnel surgery (Bilaterally), Other (Leg surgery, Foot surgery) HEENT: Tonsil/Adenoidectomy - Present Medications Home Medications: Ambulatory Orders Medication Instructions Recorded Confirmed Aspirin [Aspir 81] 162 mg PO QPM 12/01/14 12/28/21 Lisinopril [Zestril] 40 mg PO DAILY 12/28/21 12/28/21 - Allergies Allergies/Adverse Reactions: Allergies Allergy/AdvReac Type Severity Reaction Status Date / Time No Known Drug Allergies Allergy Verified 12/28/21 11:08 - Social History Does the pt smoke?: No Smoking Status: Never smoker Does the pt drink ETOH?: No Does the pt have substance abuse?: No - Immunizations Immunizations are current?: Yes - POLST Patient has POLST: No POLST Status: Full Code PD ED PE NORMAL - Vitals Vital signs reviewed: Yes (normal ) - General General: Alert and oriented X 3, No acute distress, Well developed/nourished - HEENT HEENT: Atraumatic, PERRL, EOMI, Ears normal - Neck Neck: Supple, no meningeal sign, No bony TTP - Cardiac Cardiac: RRR, No murmur - Respiratory Respiratory: No respiratory distress, Clear bilaterally, Other (maybe some tenderness to the left chest wall consistent with symptoms ) - Abdomen Abdomen: Normal bowel sounds, Soft, Non tender, Non distended - Back Back: No CVA TTP, No spinal TTP - Derm Derm: Normal color, Warm and dry, No rash - Extremities Extremities: No deformity, No edema - Neuro Neuro: Alert and oriented X 3, program management analyst 2-12 intact, No motor deficit, No sensory deficit, Normal speech Eye Opening: Spontaneous Motor: Obeys Commands Verbal: Oriented GCS Score: 15 - Psych Psych: Normal mood, Normal affect Results - Vitals Vitals: Vital Signs - 24 hr 12/28/21 12/28/21 12/28/21 11:08 11:46 12:38 Temperature 36.8 C Heart Rate 73 74 69 Respiratory 23 15 16 Rate Blood Pressure 126/61 140/76 H 134/69 H O2 Saturation 96 97 98 12/28/21 13:44 Temperature 37.1 C Heart Rate 63 Respiratory 16 Rate Blood Pressure 147/94 H O2 Saturation 98 Oxygen O2 Source Room air - EKG (time done) 1109 Rate: Rate (enter#) (82) [place]: LAD Intervals: Prolonged MO, Prolonged QT (borderline) QRS: Poor R wave progression Compare to prior EKG: Unchanged from prior EKG (SPT 03-10-2018 no sig changes) Computer interpretation: Agree with computer - Labs Labs: Laboratory Tests 12/28/21 12/28/21 12/28/21 11:25 11:25 11:25 WBC 6.5 RBC 5.00 Hgb 15.4 Hct 47.2 MCV 94.4 H MCH 30.8 MCHC 32.6 RDW 14.0 Plt Count 244 MPV 9.8 Neut # (Auto) 3.9 Lymph # (Auto) 1.6 [place] # (Auto) 0.7 Eos # (Auto) 0.2 Baso # (Auto) 0.1 Absolute Nucleated RBC 0.00 Nucleated RBC % 0.0 Sodium 140 Potassium 4.1 Chloride 106 Carbon Dioxide 25 Anion Gap 9.0 BUN 21 H Creatinine 0.7 Estimated GFR (MDRD) 112 Glucose 95 Calcium 8.7 Total Bilirubin 1.3 H AST 15 ALT 18 Alkaline Phosphatase 41 L Troponin I High Sens 3.3 Total Protein 6.5 L Albumin 3.8 Globulin 2.7 Albumin/Globulin Ratio 1.4 Lipase 33 - Rads (name of study) Chest Radiology: Prelim report reviewed (Impression: Chest without acute cardiopulmonary abnormalities. No focal airspace disease.), EMP read indepedently, See rad report CTA chest Radiology: Prelim report reviewed (Impression no evidence of pulmonary embolism aortic dissection or aneurysm minimal bibasilar platelike atelectasis or scarring. Cholelithiasis without cholecystitis. Gastric lap band.), EMP read indepedently, See rad report PD MEDICAL DECISION MAKING - ED course Complexity details: reviewed old records, reviewed results, re-evaluated patient, considered differential, d/w patient, d/w family ED course: 71-year-old male with left-sided chest pain with associated dyspnea is a hard worker and he thinks it may be he did strain his chest wall maybe as long as 3 to 4 weeks ago. He is treated here in the [facility] department with dexamethasone and Toradol. We were concerned enough about this patient's chest pain that we obtained a CT angiogram of the chest ruling out major pathology. At the conclusion of the work-up I was satisfied that the patient was not suffering from a life-threatening illness. He did not have evidence of coronary artery di sease, pulmonary embolism, aneurysm, dissection, mediastinitis, pneumonia, or COVID Departure - Departure Disposition: 01 Home, Self Care Clinical Impression: Chest wall pain Condition: Stable Instructions: ED Chest Pain Costochondritis Follow-Up: Sherrie Leos ARNP [Primary Care Provider] - Comments: Justin, today it looks like you have chest wall pain and there is no evidence of a problem with your heart the great vessels or the lungs. The expectation is resolution of these symptoms within 1 to 2 weeks. Discharge Date/Time: 12/28/21 13:57
[2021-12-28 11:41] LABS: ALBUMIN 3.8 g/dL (3.2-5.5); ALBUMIN/GLOBULIN RATIO 1.4 (1.0-2.2); BILIRUBIN,TOTAL 1.3 mg/dL (0.2-1.0); CALCIUM 8.7 mg/dL (8.5-10.3); CREATININE 0.7 mg/dL (0.6-1.2); POTASSIUM 4.1 mmol/L (3.5-5.0); TOTAL PROTEIN 6.5 g/dL (6.7-8.2)
--- NOTE | 2021-12-28 12:14 | XRAY Report ---
PROCEDURE: Chest 1 View X-Ray INDICATIONS: Chest pain TECHNIQUE: One view of the chest was acquired. COMPARISON: None. FINDINGS: Surgical changes and devices: None. Lungs and pleura: No pleural effusions or pneumothorax. Lungs are clear. Mediastinum: Mediastinal contours appear normal. Heart size is normal. Bones and chest wall: No suspicious bony lesions. Overlying soft tissues appear unremarkable. IMPRESSION: Chest without acute cardiopulmonary abnormalities. No focal airspace disease. Reviewed by: Martin Grover MD on 12/28/2021 12:12 PM PDT Approved by: Martin Grover MD on 12/28/2021 12:12 PM PDT Station ID: [id number]
[2021-12-28] MEDS ORDERED: IOVERSOL 320 100 ML VIAL IVP ONE ×2 (12:17→12:34)
--- NOTE | 2021-12-28 13:05 | CT Report ---
PROCEDURE: CT angiogram of the chest with contrast INDICATIONS: dyspnea, chest pain CONTRAST: IV CONTRAST: Isovue 300 ml: 80 PO CONTRAST: *NO PO CONTRAST TECHNIQUE: After the administration of intravenous contrast, 2 mm axial images were acquired from the pulmonary apices to the posterior costophrenic angles during the arterial phase. In addition, 1 mm lung kernel and 5 mm soft tissue kernel reconstructions were performed. coronal oblique maximum intensity project ion (MIP) reformats, 8 mm axial MIP, and 5 mm coronal and sagittal MPR reformats were then performed through the thorax. For radiation dose reduction, the following was used: automated exposure control, adjustment of mA and/or kV according to patient size. COMPARISON: 03/10/2018 FINDINGS: Image quality: Excellent. Pulmonary arteries: Pulmonary arteries are normal in size, and demonstrate no intraluminal filling d efects to suggest central pulmonary embolism. Lungs and pleura: Lungs are clear other than mild bibasilar platelike atelectasis or scarring. No p leural effusions or pneumothorax. Central and peripheral airways are patent. Mediastinum: Heart size is normal, without pericardial effusion. No mediastinal or hilar adenopathy . Thoracic aorta is normal in caliber and enhancement. Esophagus is normal in caliber, without hiat al hernia. Bones and chest wall: No suspicious bony lesions. Ribs and thoracic spine appear intact throughout. No axillary or supraclavicular adenopathy. The thyroid is normal in size and there are no incident al findings. Abdomen: Laminated stone noted in the gallbladder lumen. Gastric lap band partially imaged. IMPRESSION: No evidence of pulmonary motion, aortic dissection or aneurysm. Minimal bibasilar platelike atelectasis or scarring. Cholelithiasis without cholecystitis. Gastric lap band. Reviewed by: Anderson Herrera MD on 12/28/2021 12:04 PM AKDT Approved by: Anderson Herrera MD on 12/28/2021 12:04 PM AKDT Station ID: [id number]
[2021-12-28] MEDS ORDERED: DEXAMETHASONE 10 MG/ML VIAL IVP STA (13:29)
[2021-12-28] MEDS ORDERED: KETOROLAC 30 MG/ML VIAL IVP STA (13:29)
[2021-12-28 13:44] VITALS: BP 147/94
== END 2021-12-28 13:57 | disposition home or self-care (01) ==
LOC: ED 10:58
DX: R07.89 Other chest pain (principal); I10 Essential (primary) hypertension
CPT/HCPCS: 36415; 71045; 71275; 80053; 83690; 84484; 85025; 93005; 96374; 96375; 99284; Q9967

== ENCOUNTER 2022-12-09 08:19 | Day surgery (SDC) | payer MEDICARE ==
[2022-12-09] MEDS ORDERED: LACTATED RINGERS 1,000 ML IV ONE ×2 (08:24→10:19)
--- NOTE | 2022-12-09 08:37 | ANESTHESIA ---
Pre-Anesthesia VS, & Labs - Diagnosis hx colon polyps - Procedure colonoscopy Vital Signs: Temp Pulse Resp BP Pulse Ox O2 Flow Rate 36.0 C L 83 20 152/88 H 96 12/09/22 08:34 12/09/22 08:34 12/09/22 08:34 12/09/22 08:34 12/09/22 08:34 Height: 5 ft 10 in Weight (kg): 149.69 kg Body Mass Index: 47.3 BMI Classification: Morbidly Obese - NPO >8 hours Last Fluid Intake: am prep - Lab Results Lab results reviewed: Yes Home Medications and Allergies Aspirin [Aspir 81] 162 mg PO QPM 12/01/14 Lisinopril [Zestril] 40 mg PO DAILY 12/28/21 Allergies/Adverse Reactions: Allergies Allergy/AdvReac Type Severity Reaction Status Date / Time No Known Drug Allergies Allergy Verified 12/09/22 08:40 Anes History & Medical History - Anesthetic History Anesthesia Complications: reports: No previous complications Family history of Anesthesia Complications: Denies Family history of Malignant Hyperthermia: Denies - Medical History Cardiovascular: reports: Hypertension Pulmonary: reports: Sleep apnea, CPAP use Gastrointestinal: reports: Cholelithiasis Urinary: reports: None Neuro: reports: None Musculoskeletal: reports: Osteoarthritis Endocrine/Autoimmune: reports: None Blood Disorders: reports: None Skin: reports: None Smoking Status: Never smoker - Surgical History General: reports: Colonoscopy Eyes Ears Nose Throat (EENT): reports: Tonsil/Adenoidectomy Orthopedic: reports: Knee replacement, Carpal Tunnel surgery Exam General: Alert, Oriented x3, Cooperative Mouth Openin Fingerbreadth Neck Mobility: Normal Mallampati classification: II Thyromental Distance: 4-6 cm Respiratory: Lungs clear, Normal breath sounds, No respiratory distress Cardiovascular: Regular rate Neurological: Normal speech Mental/Cognitive Status: Alert/Oriented X3, Normal for patient Cognitive Status: Within normal limits Plan Anesthesia Type: Total IV Consent for Procedure(s) Verified and Reviewed: Yes Code Status: Attempt Resuscitation ASA classification: 3-Severe systemic disease Is this case an emergency?: No
[2022-12-09] MEDS ORDERED: PROPOFOL 500 MG/50 ML 500 MG/50 ML VIAL ONE (08:59)
[2022-12-09] MEDS ORDERED: MIDAZOLAM 2 MG/2 ML VIAL ONE (09:23)
[2022-12-09] MEDS ORDERED: PROPOFOL 200 MG/20 ML VIAL IVP ONE (10:03)
[2022-12-09 10:47] VITALS: BP 161/101
--- NOTE | 2022-12-09 10:52 | ANESTHESIA POST OP EVALUATION ---
Anesthesia Post Eval - Post Anesthesia Eval Vitals: Last Vital Signs Temp 35.9 C L 12/09/22 10:20 Pulse 87 12/09/22 10:46 Resp 14 12/09/22 10:46 BP 161/101 H 12/09/22 10:46 Pulse Ox 98 12/09/22 10:46 O2 Flow Rate CV Function Including HR & BP: Stable Pain Control: Satisfactory Nausea & Vomiting: Negative Mental Status: Baseline Respiratory Status: Airway Patent Hydration Status: Satisfactory Anesthesia Complications: None
== END 2022-12-09 08:20 | disposition home or self-care (01) ==
LOC: SDS 08:19
PROVIDERS: ATTEND Surgery
DX: Z12.11 Encounter for screening for malignant neoplasm of colon (principal); K55.20 Angiodysplasia of colon without hemorrhage; K57.30 Diverticulosis of large intestine without perforation or abscess without bleeding; E66.01 Morbid (severe) obesity due to excess calories; I10 Essential (primary) hypertension; J45.909 Unspecified asthma, uncomplicated; G47.30 Sleep apnea, unspecified; Z68.43 Body mass index [BMI] 50.0-59.9, adult; Z86.010 Personal history of colon polyps
CPT/HCPCS: G0121; J7120

== ENCOUNTER 2023-04-03 09:00 | Outpatient (CLI) | payer MEDICARE ==
[2023-04-03 15:28] LABS: BASOPHILS # (AUTO) 0.1 10^3/uL (0.0-0.1); BASOPHILS % (AUTO) 1.2 %; EOSINOPHILS # (AUTO) 0.2 10^3/uL (0.0-0.7); EOSINOPHILS % (AUTO) 4.1 %; HCT - HEMATOCRIT 45.3 % (42.0-52.0); HGB - HEMOGLOBIN 14.9 g/dL (14.0-18.0); LYMPHOCYTES # (AUTO) 1.5 10^3/uL (1.5-3.5); LYMPHOCYTES % (AUTO) 24.9 %; MEAN CORPUSCULAR HEMOGLOBIN 30.9 pg (27.0-31.0); MEAN CORPUSCULAR HGB CONC 32.9 g/dL (32.0-36.0); MEAN PLATELET VOLUME 10.3 fL (7.4-11.4); MONOCYTES # (AUTO) 0.6 10^3/uL (0.0-1.0); MONOCYTES % (AUTO) 9.6 %; NEUTROPHILS # (AUTO) 3.5 10^3/uL (1.5-6.6); NEUTROPHILS % (AUTO) 59.3 %; PLT - PLATELET COUNT 246 10^3/uL (130-450); RED BLOOD COUNT 4.82 10^6/uL (4.70-6.10); WHITE BLOOD COUNT 5.8 x10^3/uL (4.8-10.8)
[2023-04-03 15:40] LABS: THYROID STIMULATING HORMONE 0.91 uIU/mL (0.34-5.60)
[2023-04-03 15:51] LABS: ALBUMIN 3.9 g/dL (3.2-5.5); ALBUMIN/GLOBULIN RATIO 1.7 (1.0-2.2); ALKALINE PHOSPHATASE 49 IU/L (42-121); ALT ALANINE AMINOTRANSFERASE 16 IU/L (10-60); AST ASPARTATE AMINOTRANSFERASE 14 IU/L (10-42); BILIRUBIN,TOTAL 1.1 mg/dL (0.2-1.0); BUN - BLOOD UREA NITROGEN 15 mg/dL (6-20); CALCIUM 8.7 mg/dL (8.5-10.3); CARBON DIOXIDE - CO2 32 mmol/L (21-32); CHLORIDE 108 mmol/L (101-111); CHOL/HDL RATIO 3.9 (<5.0); CHOLESTEROL 168 mg/dL; CREATININE 0.7 mg/dL (0.6-1.3); GFR - MDRD 111 (>89); GLUCOSE 102 mg/dL (74-104); HDL CHOLESTEROL 43 mg/dL; LDL CHOLESTEROL,CALCULATED 111 mg/dL; LDL/HDL RATIO 2.6 (<3.6); POTASSIUM 4.3 mmol/L (3.5-4.5); SODIUM 141 mmol/L (135-145); TOTAL PROTEIN 6.2 g/dL (6.4-8.9); TRIGLYCERIDES 72 mg/dL (48-352); VLDL CHOLESTEROL 14 mg/dL
== END 2023-04-03 09:01 | disposition home or self-care (01) ==
LOC: LAB.S 09:00
PROVIDERS: ATTEND Registered Nurse
DX: Z13.228 Encounter for screening for other metabolic disorders (principal); Z13.220 Encounter for screening for lipoid disorders; Z13.29 Encounter for screening for other suspected endocrine disorder; Z13.0 Encounter for screening for diseases of the blood and blood-forming organs and certain disorders involving the immune mechanism
CPT/HCPCS: 36415; 80053; 80061; 83721; 84443; 85025

== ENCOUNTER 2024-04-15 10:10 | Outpatient (CLI) | payer MEDICARE ==
--- NOTE | 2024-04-15 14:55 | XRAY Report ---
PROCEDURE: Chest 2V INDICATIONS: ABNORMAL BREATH SOUNDS TECHNIQUE: 2 views of the chest were acquired. COMPARISON: None. FINDINGS: Surgical changes and devices: Gastric lap band noted with appropriate phi angle. Lungs and pleura: No pleural effusions or pneumothorax. Left basilar atelectasis. Otherwise, the garrett ngs are clear. Mediastinum: Mediastinal contours appear normal. Heart size is normal. Bones and chest wall: No suspicious bony lesions. Overlying soft tissues appear unremarkable. IMPRESSION: Left basilar atelectasis. Reviewed by: Luis E Sood MD on 04/15/2024 2:54 PM PDT Approved by: Luis E Sood MD on 04/15/2024 2:54 PM PDT Station ID: [id number]
[2024-04-15 15:01] LABS: BASOPHILS # (AUTO) 0.1 10^3/uL (0.0-0.1); BASOPHILS % (AUTO) 0.5 %; EOSINOPHILS # (AUTO) 0.2 10^3/uL (0.0-0.7); EOSINOPHILS % (AUTO) 1.9 %; HCT - HEMATOCRIT 49.4 % (42.0-52.0); HGB - HEMOGLOBIN 15.6 g/dL (14.0-18.0); LYMPHOCYTES # (AUTO) 1.4 10^3/uL (1.5-3.5); MEAN CORPUSCULAR HEMOGLOBIN 30.1 pg (27.0-31.0); MEAN CORPUSCULAR HGB CONC 31.6 g/dL (32.0-36.0); MEAN CORPUSCULAR VOLUME 95.2 fL (80.0-94.0); MEAN PLATELET VOLUME 10.8 fL (7.4-11.4); MONOCYTES # (AUTO) 0.7 10^3/uL (0.0-1.0); MONOCYTES % (AUTO) 7.3 %; NEUTROPHILS % (AUTO) 74.7 %; PLT - PLATELET COUNT 261 10^3/uL (130-450); RED BLOOD COUNT 5.19 10^6/uL (4.70-6.10); RED CELL DISTRIBUTION WIDTH 13.7 % (12.0-15.0); WHITE BLOOD COUNT 9.4 x10^3/uL (4.8-10.8)
[2024-04-15 15:28] LABS: THYROID STIMULATING HORMONE 0.58 uIU/mL (0.34-5.60)
[2024-04-15 15:45] LABS: ALBUMIN/GLOBULIN RATIO 1.7 (1.0-2.2); ALKALINE PHOSPHATASE 48 IU/L (42-121); ALT ALANINE AMINOTRANSFERASE 22 IU/L (10-60); AST ASPARTATE AMINOTRANSFERASE 17 IU/L (10-42); BILIRUBIN,TOTAL 1.8 mg/dL (0.2-1.0); BUN - BLOOD UREA NITROGEN 17 mg/dL (6-20); CALCIUM 8.8 mg/dL (8.5-10.3); CARBON DIOXIDE - CO2 31 mmol/L (21-32); CHLORIDE 104 mmol/L (101-111); CHOL/HDL RATIO 3.7 (<5.0); CHOLESTEROL 178 mg/dL; CREATININE 0.7 mg/dL (0.6-1.3); GFR - MDRD 111 (>89); GLUCOSE 91 mg/dL (74-104); HDL CHOLESTEROL 48 mg/dL; LDL CHOLESTEROL,CALCULATED 114 mg/dL; LDL/HDL RATIO 2.4 (<3.6); POTASSIUM 4.5 mmol/L (3.5-4.5); SODIUM 139 mmol/L (135-145); TOTAL PROTEIN 6.3 g/dL (6.4-8.9); TRIGLYCERIDES 80 mg/dL; VLDL CHOLESTEROL 16 mg/dL
== END 2024-04-15 10:11 | disposition home or self-care (01) ==
LOC: DI.S 10:10
PROVIDERS: ATTEND Registered Nurse
DX: J98.11 Atelectasis (principal); R09.89 Other specified symptoms and signs involving the circulatory and respiratory systems; Z12.5 Encounter for screening for malignant neoplasm of prostate; Z13.228 Encounter for screening for other metabolic disorders; Z13.220 Encounter for screening for lipoid disorders; Z13.29 Encounter for screening for other suspected endocrine disorder; Z13.0 Encounter for screening for diseases of the blood and blood-forming organs and certain disorders involving the immune mechanism
CPT/HCPCS: 36415; 71046; 80053; 80061; 84443; 85025; G0103; 83721; 84153

== ENCOUNTER 2024-04-25 10:52 | Outpatient (CLI) | payer MEDICARE ==
[2024-04-25] MEDS: ALBUTEROL 1 PUFF INH STA (12:34)
== END 2024-04-25 10:53 | disposition home or self-care (01) ==
LOC: RT 10:52
PROVIDERS: ATTEND Registered Nurse
DX: R06.09 Other forms of dyspnea (principal)
CPT/HCPCS: 94060; 94729